=== PATIENT | female | born 1950 | race Caucasian/White ===

== ENCOUNTER 2019-02-22 05:05 | Emergency (ER) | payer MEDICARE, BC ==
[2019-02-22] MEDS ORDERED: Sodium Chloride 0.9% 10 ML Syringe FLUSH PRN (05:28)
--- NOTE | 2019-02-22 05:59 | EDM.PDOC ---
ED HPI GENERAL MEDICAL PROBLEM - General Chief Complaint: Chest Pain Stated Complaint: Back, left lateral rib, left chest pain Time Seen by Provider: 02/22/19 05:24 Source of Information: Reports: Patient History Limitations: Reports: No Limitations - History of Present Illness INITIAL COMMENTS - FREE TEXT/NARRATIVE: Patient presents with reports of respirophasic chest pain over the last couple of days. Pain originates in her left lateral back and wraps around under the left breast. Worse with deep breaths. Has history of arthritis, fibromyalgia. Denies prior history of stroke, prior ID, cancer, kidney disease. She did take 325 mg aspirin before presenting to the ED. Afebrile, no recent illness, no recent travel out of the country. From [facility]. Onset: Gradual Duration: Intermittent Location: Reports: Chest, Back Quality: Reports: Ache, Other (cramping) Treatments ZOO DIRECTOR: Reports: Aspirin Other Treatments ZOO DIRECTOR: Aspirin 325mg left upper back, left lateral rib, left chest pain under breast Pain Score (Numeric/FACES): 3 - Related Data Allergies Allergy/AdvReac Type Severity Reaction Status Date / Time amoxicillin Allergy Rash Verified 02/22/19 05:23 ED ROS GENERAL - Review of Systems Review Of Systems: See Below Constitutional: Reports: No Symptoms HEENT: Reports: No Symptoms Respiratory: Reports: Other (pain with breathing) Cardiovascular: Reports: Chest Pain Endocrine: Reports: No Symptoms GI/Abdominal: Reports: No Symptoms : Reports: No Symptoms Musculoskeletal: Reports: No Symptoms Skin: Reports: No Symptoms Neurological: Reports: No Symptoms Psychiatric: Reports: No Symptoms Hematologic/Lymphatic: Reports: No Symptoms Immunologic: Reports: No Symptoms ED EXAM, GENERAL - Physical Exam Exam: See Below Exam Limited By: No Limitations General Appearance: Alert, WD/WN, No Apparent Distress Eye Exam: Bilateral Eye: EOMI, Normal Inspection, PERRL Ears: Normal TMs Nose: Normal Inspection, Normal Mucosa, No Blood Throat/Mouth: Normal Inspection, Normal Lips, Normal Teeth, Normal Gums, Normal Oropharynx, Normal Voice, No Airway Compromise Head: Atraumatic, Normocephalic Neck: Normal Inspection, Supple, Non-Tender, Full Range of Motion Respiratory/Chest: No Respiratory Distress, Lungs Clear, Normal Breath Sounds, No Accessory Muscle Use, Chest Non-Tender Cardiovascular: Normal Peripheral Pulses, Regular Rate, Rhythm, No Edema, No Gallop, No JVD, No Murmur, No Rub Peripheral Pulses: 2+: Posterior Tibial (L), Posterior Tibial (R), Dorsalis Pedis (L), Dorsalis Pedis (R) GI/Abdominal: Normal Bowel Sounds, Soft, Non-Tender, No Organomegaly, No Distention, No Abnormal Bruit, No Mass Back Exam: Normal Inspection, Full Range of Motion, NT Extremities: Normal Inspection, Normal Range of Motion, Non-Tender, Normal Capillary Refill, No Pedal Edema Neurological: Alert, Oriented, CN II-XII Intact, Normal Cognition, Normal Gait, Normal Reflexes, No Motor/Sensory Deficits Psychiatric: Normal Affect, Normal Mood Skin Exam: Warm, Dry, Intact, Normal Color, No Rash Lymphatic: No Adenopathy Course - Vital Signs Last Recorded V/S: Last Vital Signs Temp 36.5 C 02/22/19 05:05 Pulse 82 02/22/19 05:05 Resp 14 02/22/19 06:15 BP 136/68 02/22/19 06:15 Pulse Ox 95 02/22/19 06:15 - Orders/Labs/Meds Orders: Active Orders 24 hr Category Date Time Status EKG Documentation Completion [RC] STAT Care 02/22/19 05:28 Ordered Chest 1V Frontal [CR] Stat Exams 02/22/19 05:28 Ordered Sodium Chloride 0.9% [Normal Saline] 1,000 ml Med 02/22/19 06:00 Ordered IV ASDIRECTED Sodium Chloride 0.9% [Saline Flush] Med 02/22/19 05:28 Ordered 10 ml FLUSH ASDIRECTED PRN Saline Lock Insert [OM.PC] Routine Oth 02/22/19 05:28 Ordered Medication Orders Sodium Chloride (Normal Saline) 1,000 mls @ 999 mls/hr IV ASDIRECTED KRISH Last Admin: 02/22/19 06:05 Dose: 999 mls/hr Sodium Chloride (Saline Flush) 10 ml FLUSH ASDIRECTED PRN PRN Reason: Keep Vein Open Labs: Laboratory Tests 02/22/19 02/22/19 02/22/19 Range/Units 05:30 05:30 05:30 WBC 7.1 (4.0-10.0) x10^3/uL RBC 3.79 L (4.00-5.50) x10^6/uL Hgb 12.3 (12.0-16.0) g/dL Hct 38.0 (33.0-47.0) % MCV 100.3 H (78.0-93.0) fL MCH 32.5 H (26.0-32.0) pg MCHC 32.4 (32.0-36.0) g/dL RDW Coeff of Brian 12.5 (10.0-15.0) % Plt Count 226 (130-400) x10^3/uL Neut % (Auto) 65.7 (50.0-80.0) % Lymph % (Auto) 21.2 L (25.0-50.0) % [place] % (Auto) 10.2 (2.0-11.0) % Eos % (Auto) 2.3 (0.0-4.0) % Baso % (Auto) 0.6 (0.2-1.2) % PT 9.8 L (10.0-12.8) SEC INR 0.9 L (2.0-3.5) Sodium 143 (136-145) mmol/L Potassium 3.7 (3.5-5.1) mmol/L Chloride 106 (98-107) mmol/L Carbon Dioxide 27 (21-32) mmol/L Anion Gap 13.7 (10-20) mmol/L BUN 17 (7-18) mg/dL Creatinine 1.1 H (0.55-1.02) mg/dL Est Cr Clr Drug Dosing 50.44 mL/min Estimated GFR (MDRD) 49 Glucose 101 (74-106) mg/dL Calcium 8.9 (8.5-10.1) mg/dL Corrected Calcium 9.62 (8.5-10.1) mg/dL Magnesium 1.9 (1.8-2.4) mg/dL Total Bilirubin 0.2 (0.2-1.0) mg/dL AST 10 L (15-37) U/L ALT 22 (14-59) U/L Alkaline Phosphatase 72 (46-116) U/L POC Troponin I (0.00-0.08) ng/mL NT-Pro-B Natriuret Pep 180 H (<=125) pg/mL Total Protein 6.4 (6.4-8.2) g/dL Albumin 3.1 L (3.4-5.0) g/dL Globulin 3.3 Albumin/Globulin Ratio 0.94 TSH, Ultra Sensitive 4.595 H (0.358-3.74) uIU/mL 02/22/19 Range/Units 05:37 WBC (4.0-10.0) x10^3/uL RBC (4.00-5.50) x10^6/uL Hgb (12.0-16.0) g/dL Hct (33.0-47.0) % MCV (78.0-93.0) fL MCH (26.0-32.0) pg MCHC (32.0-36.0) g/dL RDW Coeff of Brian (10.0-15.0) % Plt Count (130-400) x10^3/uL Neut % (Auto) (50.0-80.0) % Lymph % (Auto) (25.0-50.0) % [place] % (Auto) (2.0-11.0) % Eos % (Auto) (0.0-4.0) % Baso % (Auto) (0.2-1.2) % PT (10.0-12.8) SEC INR (2.0-3.5) Sodium (136-145) mmol/L Potassium (3.5-5.1) mmol/L Chloride (98-107) mmol/L Carbon Dioxide (21-32) mmol/L Anion Gap (10-20) mmol/L BUN (7-18) mg/dL Creatinine (0.55-1.02) mg/dL Est Cr Clr Drug Dosing mL/min Estimated GFR (MDRD) Glucose (74-106) mg/dL Calcium (8.5-10.1) mg/dL Corrected Calcium (8.5-10.1) mg/dL Magnesium (1.8-2.4) mg/dL Total Bilirubin (0.2-1.0) mg/dL AST (15-37) U/L ALT (14-59) U/L Alkaline Phosphatase (46-116) U/L POC Troponin I 0.03 (0.00-0.08) ng/mL NT-Pro-B Natriuret Pep (<=125) pg/mL Total Protein (6.4-8.2) g/dL Albumin (3.4-5.0) g/dL Globulin Albumin/Globulin Ratio TSH, Ultra Sensitive (0.358-3.74) uIU/mL Meds: Medications Generic Name Dose Route Start Last Admin Trade Name Freq PRN Reason Stop Dose Admin Sodium Chloride 1,000 mls @ 999 mls/hr 02/22/19 06:00 02/22/19 06:05 Normal Saline IV 999 mls/hr ASDIRECTED KRISH Administration Sodium Chloride 10 ml 02/22/19 05:28 Saline Flush FLUSH ASDIRECTED PRN Keep Vein Open Discontinued Medications Generic Name Dose Route Start Last Admin Trade Name Freq PRN Reason Stop Dose Admin Methylprednisolone Sodium Succinate 40 mg 02/22/19 06:15 02/22/19 06:24 Solu-Medrol IVPUSH 02/22/19 06:16 40 mg ONETIME ONE Administration - Radiology Interpretation Free Text/Narrative:: Chest x-ray indicates bilateral bronchial thickening, indicating bronchitis Departure - Departure Time of Disposition: 06:56 Disposition: Home, Self-Care 01 Condition: Good Clinical Impression: Bronchitis Instructions: Acute Bronchitis, Adult, [id number] Referrals: PCP,Unobtain [Primary Care Provider] - Forms: ED Department Discharge Additional Instructions: Plan Stay well hydrated Take ibuprofen and tylenol for back and chest pain. Bronchitis usually resolves in 1-2 weeks Antibiotics are not indicated at this time Labs are negative for any electrolyte abnormalities, negative for acute coronary syndrome Take over the counter cough preparations as needed for any progressively worsening cough. Return for reevaluation if you develop fever, rapid heart rate Please call the ER if you have any additional questions or concerns - Problem List & Annotations (1) Bronchitis SNOMED Code(s): 41283412 Code(s): J40 - BRONCHITIS, NOT SPECIFIED ACUTE OR CHRONIC Status: Acute Priority: Low Current Visit: Yes - Problem List Review Problem List Initiated/Reviewed/Updated: Yes - My Orders Last 24 Hours: My Active Orders 02/22/19 05:28 EKG Documentation Completion [RC] STAT Chest 1V Frontal [CR] Stat Sodium Chloride 0.9% [Saline Flush] 10 ml FLUSH ASDIRECTED PRN Saline Lock Insert [OM.PC] Routine 02/22/19 06:00 Sodium Chloride 0.9% [Normal Saline] 1,000 ml IV ASDIRECTED - Assessment/Plan Last 24 Hours: My Active Orders 02/22/19 05:28 EKG Documentation Completion [RC] STAT Chest 1V Frontal [CR] Stat Sodium Chloride 0.9% [Saline Flush] 10 ml FLUSH ASDIRECTED PRN Saline Lock Insert [OM.PC] Routine 02/22/19 06:00 Sodium Chloride 0.9% [Normal Saline] 1,000 ml IV ASDIRECTED Assessment:: acute bronchitis Plan: Plan Stay well hydrated Take ibuprofen and tylenol for back and chest pain. Bronchitis usually resolves in 1-2 weeks Antibiotics are not indicated at this time Labs are negative for any electrolyte abnormalities, negative for acute coronary syndrome Take over the counter cough preparations as needed for any progressively worsening cough. Return for reevaluation if you develop fever, rapid heart rate Please call the ER if you have any additional questions or concerns
[2019-02-22] MEDS ORDERED: Sodium Chloride 0.9% 1,000 ML IV SCH (06:00)
[2019-02-22] MEDS ORDERED: methylPREDNISolone Sodium Succinate 40 MG/1 ML SDV IVPUSH ONE (06:15)
[2019-02-22 06:16] LABS: ANION GAP 13.7 mmol/L (10-20)
--- NOTE | 2019-02-22 07:55 | CR ---
[id number] RAD/RAD Chest PA or AP 1V EXAM: RAD Chest PA or AP 1V INDICATION: CHEST PAIN COMPARISON: None. DISCUSSION: Blunting of the left costophrenic sulcus consistent with a small effusion. Mild cardiomegaly and central vascular congestion. Streaky linear opacity in left lung base consistent with either developing infiltrate or subsegmental atelectasis. No evidence of pneumonia. No pneumothorax. IMPRESSION: As above. Gómez Johnson MD 02/22/19 0751 Thank you for allowing us to participate in the care of your patient.
== END 2019-02-22 07:05 | disposition home or self-care (01) ==
LOC: VM.ED 05:05
DX: J20.9 Acute bronchitis, unspecified (principal); Z88.1 Allergy status to other antibiotic agents; R06.09 Other forms of dyspnea
CPT/HCPCS: 36415; 71045; 80053; 83735; 83880; 84443; 84484; 85025; 85610; 93005; 96361; 96374; 99283; 99284; J2920; J7030

== ENCOUNTER 2019-03-02 07:10 | Emergency (ER) | payer MEDICARE, BC ==
--- NOTE | 2019-03-02 08:00 | CR ---
[id number] RAD/RAD Chest PA And Lateral EXAM: RAD Chest PA And Lateral INDICATION: CHEST CONGESTION, COUGH. COMPARISON: February 22, 2019 DISCUSSION: Small left pleural effusion. Cardiomediastinal silhouette is normal in size and contour. No infiltrate, effusion, pneumothorax, or edema. IMPRESSION: Small left pleural effusion. No other significant abnormality. Gómez Johnson MD 03/02/19 0759 Thank you for allowing us to participate in the care of your patient.
[2019-03-02] MEDS ORDERED: Sodium Chloride 0.9% 10 ML Syringe FLUSH PRN (08:17)
[2019-03-02 08:29] LABS: ANION GAP 12.5 mmol/L (10-20); CHLORIDE,CL 106 mmol/L (98-107); SODIUM,NA 143 mmol/L (136-145)
[2019-03-02] MEDS ORDERED: Iopamidol 612 MG/ML 100 ML Bottle IVPUSH ONE (08:29)
--- NOTE | 2019-03-02 09:08 | CT ---
[id number] CT/CTA Chest Exam: CTA Chest Clinical Data: POSITIVE D-DIMER. PLEURAL EFFUSION COMPARISON: CORRELATION IS MADE WITH THE CURRENT CHEST RADIOGRAPH FINDINGS: There is a small left-sided pleural effusion. There are no pulmonary emboli. There is no infiltrate or obvious lung mass. There is no mediastinal mass or adenopathy. The gallbladder is slightly distended. There are indeterminate 1.5 cm hepatic hypodensities in the right lobe of the liver. The common duct and pancreatic duct are both slightly dilated. IMPRESSION: NO PULMONARY EMBOLI. SMALL LEFT-SIDED EFFUSION. QUESTION OF EXTRA HEPATIC BILIARY OBSTRUCTION. QUESTION OF CYSTS VERSUS EARLY METASTATIC DISEASE INVOLVING LIVER. CONSIDER ERCP, MRCP, AN MRI OF THE LIVER. Glenn Monique MD 03/02/19 0908 Thank you for allowing us to participate in the care of your patient.
--- NOTE | 2019-03-02 09:50 | EDM.PDOC ---
ED HPI GENERAL MEDICAL PROBLEM - General Chief Complaint: Chest Pain Stated Complaint: CHEST PAIN Time Seen by Provider: 03/02/19 07:12 Source of Information: Reports: Patient History Limitations: Reports: No Limitations - History of Present Illness INITIAL COMMENTS - FREE TEXT/NARRATIVE: Pt. presents to ER with complaints of L sided lower chest pain. She states that the discomfort is worse with deep breathing. She has had some mild, non- productive cough as well. Denies any fever or chills. No shortness of breath, substernal chest pain or lightheadedness. She was seen for the same symptoms on 02/22 and had a chest x-ray at that time which showed a small L sided pleural effusion and some atelectasis in the area and was diagnosed with bronchitis. Her other labs were normal with the exception of an elevated proBNP. Pt. states that she was feeling better over the past several days and today the pain was back and more severe. She denies any abdominal pain. No discoloration of her urine. Stools have been normal. No melena or hematochezia. Pt. is and they are "full-time RVers". They are visiting family in [place] but reside in the [facility]. Pt. has a PCP there. She has a history of rheumatoid arthritis and takes enbrel. Denies any other pertinent PMH. Onset: Today Onset Date: 03/02/19 Location: Reports: Chest Quality: Reports: Ache Severity: Moderate Left Thoracic Pain Score (Numeric/FACES): 3 - Related Data Allergies Allergy/AdvReac Type Severity Reaction Status Date / Time amoxicillin Allergy Rash Verified 03/02/19 07:30 Home Meds: Home Meds Acetaminophen 325 mg PO ASDIRECTED PRN 03/02/19 [History] Alpha Lipoic Acid 600 mg PO DAILY 03/02/19 [History] Calcium Carbonate/Vitamin D3 [Caltrate 600 + D Soft Chew Tab] 1 each PO BEDTIME 03/02/19 [History] Ciprofloxacin [Ciprofloxacin HCl] 500 mg PO ASDIRECTED PRN 03/02/19 [History] Cranberry Fruit Extract [Cranberry] 200 mg PO DAILY 03/02/19 [History] Cyanocobalamin (Vitamin B-12) [B-12] 1,000 mcg PO DAILY 03/02/19 [History] Donepezil HCl [Aricept] 10 mg PO BEDTIME 03/02/19 [History] Etanercept [Enbrel] 50 mg SQ Q7D 03/02/19 [History] Melatonin 5 mg PO BEDTIME 03/02/19 [History] Memantine HCl 5 mg PO BID 03/02/19 [History] Mirtazapine 15 mg PO BEDTIME 03/02/19 [History] [place]-3 Fatty Acids/Fish Oil [Fish Oil 1,000 mg Softgel] 1 each PO DAILY [History] Salsalate 750 mg PO ASDIRECTED PRN 03/02/19 [History] atorvaSTATin [Lipitor] 40 mg PO BEDTIME 03/02/19 [History] Past Medical History HEENT History: Reports: Other (See Below) Other HEENT History: Vocal polyp, removed. Cardiovascular History: Reports: High Cholesterol Musculoskeletal History: Reports: Osteoporosis, RA, Other (See Below) Other Musculoskeletal History: Lumbar compression fracture.(Kyphoplasty) Fractured wrist. - Past Surgical History HEENT Surgical History: Reports: Other (See Below) Other HEENT Surgeries/Procedures: Eye lid surgery Musculoskeletal Surgical History: Reports: Hip Replacement, Shoulder Surgery Other Musculoskeletal Surgeries/Procedures:: left shoulder surgery 2005. left wrist broken/surgery 2008. right hip replacement 2018 Social & Family History - Tobacco Use Smoking Status *Q: Never Smoker - Alcohol Use Number of Drinks Per Day: 1 - Recreational Drug Use Recreational Drug Use: No ED ROS GENERAL - Review of Systems Review Of Systems: See Below Constitutional: Reports: No Symptoms HEENT: Reports: No Symptoms Respiratory: Reports: Pleuritic Chest Pain Cardiovascular: Reports: No Symptoms Endocrine: Reports: No Symptoms GI/Abdominal: Reports: No Symptoms : Reports: No Symptoms Musculoskeletal: Reports: No Symptoms Skin: Reports: No Symptoms Neurological: Reports: No Symptoms Psychiatric: Reports: No Symptoms Hematologic/Lymphatic: Reports: No Symptoms Immunologic: Reports: Other (Rheumatoid arthritis, on Enbrel) ED EXAM, GENERAL - Physical Exam Exam: See Below Exam Limited By: No Limitations General Appearance: Alert, WD/WN, No Apparent Distress Throat/Mouth: Normal Inspection, Normal Lips, Normal Teeth, Normal Gums, Normal Oropharynx, Normal Voice, No Airway Compromise Head: Atraumatic, Normocephalic Neck: Normal Inspection Respiratory/Chest: No Respiratory Distress, Lungs Clear, Normal Breath Sounds, No Accessory Muscle Use, Chest Non-Tender Cardiovascular: Normal Peripheral Pulses, Regular Rate, Rhythm, No Edema, No Gallop, No JVD, No Murmur, No Rub Peripheral Pulses: 4+: Radial (L) GI/Abdominal: Soft, Non-Tender, No Organomegaly, No Distention, No Abnormal Bruit, No Mass (Female) Exam: Deferred Rectal (Female) Exam: Deferred Back Exam: Normal Inspection, Full Range of Motion Extremities: Normal Inspection, Normal Range of Motion, Non-Tender, No Pedal Edema, Normal Capillary Refill Neurological: Alert, Oriented, CN II-XII Intact, Normal Cognition, Normal Gait, Normal Reflexes, No Motor/Sensory Deficits Psychiatric: Normal Affect, Normal Mood Skin Exam: Warm, Dry, Intact, Normal Color, No Rash Lymphatic: No Adenopathy EKG INTERPRETATION Rhythm: NSR [place]: Normal P-Wave: Present QRS: Normal ST-T: Normal QT: Normal Course - Vital Signs Last Recorded V/S: Last Vital Signs Temp 36.6 C 03/02/19 07:12 Pulse 69 03/02/19 07:12 Resp 16 03/02/19 07:12 BP 118/62 03/02/19 07:12 Pulse Ox 98 03/02/19 07:12 - Orders/Labs/Meds Orders: Active Orders 24 hr Category Date Time Status Sodium Chloride 0.9% [Saline Flush] Med 03/02/19 08:17 Active 10 ml FLUSH ASDIRECTED PRN Peripheral IV Insertion Adult [OM.PC] Routine Oth 03/02/19 08:18 Ordered Medication Orders Sodium Chloride (Saline Flush) 10 ml FLUSH ASDIRECTED PRN PRN Reason: Keep Vein Open Labs: Laboratory Tests 03/02/19 03/02/19 03/02/19 Range/Units 07:50 07:50 07:50 WBC 7.3 (4.0-10.0) x10^3/uL RBC 3.90 L (4.00-5.50) x10^6/uL Hgb 13.1 (12.0-16.0) g/dL Hct 38.2 (33.0-47.0) % MCV 97.9 H (78.0-93.0) fL MCH 33.6 H (26.0-32.0) pg MCHC 34.3 (32.0-36.0) g/dL RDW Coeff of Brian 12.5 (10.0-15.0) % Plt Count 241 (130-400) x10^3/uL Add Manual Diff Yes Neutrophils % (Manual) 66 (50-80) % Band Neutrophils % 4 (0-6) % Lymphocytes % (Manual) 15 L (25-50) % Monocytes % (Manual) 10 (2-11) % Eosinophils % (Manual) 4 (0-4) % Metamyelocytes % 1 H (0) % Platelet Estimate Adequate Giant Platelets Few H PT 10.0 (10.0-12.8) SEC INR 0.9 L (2.0-3.5) D-Dimer, Quantitative (<=0.58) mg/LFEU Sodium 143 (136-145) mmol/L Potassium 4.5 (3.5-5.1) mmol/L Chloride 106 (98-107) mmol/L Carbon Dioxide 29 (21-32) mmol/L Anion Gap 12.5 (10-20) mmol/L BUN 16 (7-18) mg/dL Creatinine 1.0 (0.55-1.02) mg/dL Est Cr Clr Drug Dosing TNP Estimated GFR (MDRD) 55 Glucose 104 (74-106) mg/dL Calcium 8.8 (8.5-10.1) mg/dL Corrected Calcium 9.44 (8.5-10.1) mg/dL Phosphorus 3.7 (2.6-4.7) mg/dL Magnesium 2.0 (1.8-2.4) mg/dL Total Bilirubin 0.4 (0.2-1.0) mg/dL AST 20 (15-37) U/L ALT 33 (14-59) U/L Alkaline Phosphatase 79 (46-116) U/L C-Reactive Protein 1.5 H (<=0.9) mg/dL NT-Pro-B Natriuret Pep 284 H (<=125) pg/mL Total Protein 7.1 (6.4-8.2) g/dL Albumin 3.2 L (3.4-5.0) g/dL Globulin 3.9 Albumin/Globulin Ratio 0.82 Amylase (25-115) U/L Lipase (73-393) U/L 03/02/19 03/02/19 Range/Units 07:50 07:50 WBC (4.0-10.0) x10^3/uL RBC (4.00-5.50) x10^6/uL Hgb (12.0-16.0) g/dL Hct (33.0-47.0) % MCV (78.0-93.0) fL MCH (26.0-32.0) pg MCHC (32.0-36.0) g/dL RDW Coeff of Brian (10.0-15.0) % Plt Count (130-400) x10^3/uL Add Manual Diff Neutrophils % (Manual) (50-80) % Band Neutrophils % (0-6) % Lymphocytes % (Manual) (25-50) % Monocytes % (Manual) (2-11) % Eosinophils % (Manual) (0-4) % Metamyelocytes % (0) % Platelet Estimate Giant Platelets PT (10.0-12.8) SEC INR (2.0-3.5) D-Dimer, Quantitative 0.59 H (<=0.58) mg/LFEU Sodium (136-145) mmol/L Potassium (3.5-5.1) mmol/L Chloride (98-107) mmol/L Carbon Dioxide (21-32) mmol/L Anion Gap (10-20) mmol/L BUN (7-18) mg/dL Creatinine (0.55-1.02) mg/dL Est Cr Clr Drug Dosing Estimated GFR (MDRD) Glucose (74-106) mg/dL Calcium (8.5-10.1) mg/dL Corrected Calcium (8.5-10.1) mg/dL Phosphorus (2.6-4.7) mg/dL Magnesium (1.8-2.4) mg/dL Total Bilirubin (0.2-1.0) mg/dL AST (15-37) U/L ALT (14-59) U/L Alkaline Phosphatase (46-116) U/L C-Reactive Protein (<=0.9) mg/dL NT-Pro-B Natriuret Pep (<=125) pg/mL Total Protein (6.4-8.2) g/dL Albumin (3.4-5.0) g/dL Globulin Albumin/Globulin Ratio Amylase 57 (25-115) U/L Lipase 264 (73-393) U/L Meds: Medications Generic Name Dose Route Start Last Admin Trade Name Freq PRN Reason Stop Dose Admin Sodium Chloride 10 ml 03/02/19 08:17 Saline Flush FLUSH ASDIRECTED PRN Keep Vein Open Discontinued Medications Generic Name Dose Route Start Last Admin Trade Name Freq PRN Reason Stop Dose Admin Iopamidol 100 ml 03/02/19 08:29 03/02/19 08:52 Isovue-300 (61%) IVPUSH 03/02/19 08:30 100 ml ONETIME ONE Administration - Radiology Interpretation Free Text/Narrative:: Small pleural effusion noted on CXR. CT angiogram was performed of the chest. There was a pleural effusion. No pulmonary embolism. No lung or mediastinal masses. Gallbladder was slightly enlarged. 1.5 cm hepatic hypodensity. Pt. will require MRI/MRCP in the near future. Departure - Departure Time of Disposition: 10:04 Disposition: Home, Self-Care 01 Clinical Impression: Pleural effusion, Hypodense mass of liver - Discharge Information Referrals: PCP,Not In Area [Primary Care Provider] - Forms: ED Department Discharge - Problem List Review Problem List Initiated/Reviewed/Updated: Yes - My Orders Last 24 Hours: My Active Orders 03/02/19 08:17 Sodium Chloride 0.9% [Saline Flush] 10 ml FLUSH ASDIRECTED PRN 03/02/19 08:18 Peripheral IV Insertion Adult [OM.PC] Routine - Assessment/Plan Last 24 Hours: My Active Orders 03/02/19 08:17 Sodium Chloride 0.9% [Saline Flush] 10 ml FLUSH ASDIRECTED PRN 03/02/19 08:18 Peripheral IV Insertion Adult [OM.PC] Routine Plan: Discussed findings with patient and . Pt. will be able to be discharged with close follow-up for MRI/MRCP, echocardiogram, and possible thoracentesis to determine cause of the effusion. Pt. does have an elevated proBNP as well. Pt. is again from [facility] and states that she will follow-up there. She was offered set-up with a PCP but they will be travelling home for further evaluation and treatment. I advised her to stop the Enbrel-the medication could be causing heart failure and effusion. She was started on a short course of [place] for pain from the pleural effusion.
== END 2019-03-02 10:20 | disposition home or self-care (01) ==
LOC: VM.ED 07:10
DX: J90 Pleural effusion, not elsewhere classified (principal); R16.0 Hepatomegaly, not elsewhere classified; E78.00 Pure hypercholesterolemia, unspecified; M06.9 Rheumatoid arthritis, unspecified; Z79.899 Other long term (current) drug therapy; Z88.1 Allergy status to other antibiotic agents
CPT/HCPCS: 36415; 71046; 71275; 80053; 82150; 83690; 83735; 83880; 84100; 85025; 85379; 85610; 86140; 93010; 99284; Q9967